=== PATIENT | male | born 1955 | race Caucasian/White ===

== ENCOUNTER 2017-09-30 02:25 | Emergency (ER) | payer BC ==
--- NOTE | 2017-09-30 02:25 | EDM.PDOC ---
ED HPI GENERAL MEDICAL PROBLEM - General Chief Complaint: Respiratory Problem Stated Complaint: SOB AMBULANCE Time Seen by Provider: 09/30/17 02:20 Source of Information: Reports: Patient, EMS History Limitations: Reports: No Limitations - History of Present Illness INITIAL COMMENTS - FREE TEXT/NARRATIVE: EMS states arrived pt panting at scene O2 60%, NR mask placed O2 2 90%. pt states usually uses O2 @ 8 LMP cannula and CPAP for sleep apnoea. got up to bathroom and back and got SOB unable to breath called EMS. - Related Data Allergies Allergy/AdvReac Type Severity Reaction Status Date / Time No Known Allergies Allergy Verified 09/30/17 03:23 Home Meds: Home Meds Folic Acid 0.8 mg PO ASDIRECTED 11/07/13 [History] Methotrexate Sodium [Methotrexate] 15 mg PO ASDIRECTED 08/16/14 [History] Naproxen 500 mg PO BIDM 08/16/14 [History] Albuterol/Ipratropium [Combivent Respimat] 1 puff INH QID PRN 09/09/15 [History] Valsartan/Hydrochlorothiazide [Valsartan-Hctz 160-12.5 mg Tab] 1 tab PO DAILY [History] Acetaminophen [Tylenol] 650 mg PO Q4H PRN #0 tablet 09/10/15 [Rx] Albuterol/Ipratropium [DuoNeb 3.0-0.5 MG/3 ML] 3 ml NEB Q6HRRT neb 09/10/15 [Rx ] Enoxaparin [Lovenox] 40 mg SUBCUT DAILY syringe 09/10/15 [Rx] Levofloxacin/Dextrose 5%-Water [Levaquin in D5W 750 MG/150 ML] 750 mg IV Q24H bag 09/10/15 [Rx] Ranitidine [Zantac] 150 mg PO BID 09/30/17 [History] Turmeric [Curcumin] 1,500 mg PO DAILY 09/30/17 [History] Past Medical History Other Gastrointestinal History: colon polyps Social & Family History - Tobacco Use Smoking Status *Q: Former Smoker Years of Tobacco use: 30 Packs/Tins Daily: 1 (1 to 2) Used Tobacco, but Quit: No Month Tobacco Last Used: 2014 Second Hand Smoke Exposure: Yes - Alcohol Use Days Per Week of Alcohol Use: 0 - Recreational Drug Use Recreational Drug Use: No - Living Situation & Occupation Living situation: Reports: , with Family Occupation: Employed ED ROS GENERAL - Review of Systems Review Of Systems: ROS reveals no pertinent complaints other than HPI. ED EXAM, GENERAL - Physical Exam Exam: See Below Exam Limited By: No Limitations General Appearance: Alert, WD/WN, Mild Distress, Moderate Distress, Other (sob) Ears: Hearing Grossly Normal Throat/Mouth: Normal Voice, No Airway Compromise Head: Atraumatic Neck: Non-Tender, Full Range of Motion Respiratory/Chest: Decreased Breath Sounds, Rhonchi, Wheezing, Retractions Cardiovascular: Regular Rate, Rhythm GI/Abdominal: Soft, Non-Tender Neurological: Alert, Oriented, Normal Cognition, No Motor/Sensory Deficits Psychiatric: Anxious Skin Exam: Warm, Dry, Normal Color Lymphatic: No Adenopathy Course - Vital Signs Last Recorded V/S: Last Vital Signs Temp 37.8 C 09/30/17 05:19 Pulse 117 H 09/30/17 05:19 Resp 24 H 09/30/17 05:19 BP 116/71 09/30/17 05:19 Pulse Ox 91 L 09/30/17 05:19 - Orders/Labs/Meds Orders: Active Orders 24 hr Category Date Time Status EKG 12 Lead [EKG Documentation Completion] [RC] STAT Care 09/30/17 06:04 Ordered Chest w Cont [CT] Urgent Exams 09/30/17 03:22 Taken CULTURE BLOOD [BC] Stat Lab 09/30/17 02:25 Received Azithromycin [Zithromax] 500 mg Med 09/30/17 06:03 Ordered Sodium Chloride 0.9% [Normal Saline] 250 ml IV ONETIME cefTRIAXone [Rocephin] 1 gm Med 09/30/17 06:02 Ordered Sodium Chloride 0.9% [Normal Saline] 50 ml IV ONETIME Medication Orders Ceftriaxone Sodium 1 gm/ (Sodium Chloride) 50 mls @ 100 mls/hr IV ONETIME ONE Stop: 09/30/17 06:31 Azithromycin 500 mg/ Sodium (Chloride) 250 mls @ 250 mls/hr IV ONETIME ONE Stop: 09/30/17 07:02 Labs: Laboratory Tests 09/30/17 09/30/17 09/30/17 Range/Units 02:25 02:25 02:25 WBC 11.2 H (5.0-10.0) 10^3/uL RBC 4.32 L (4.6-6.2) 10^6/uL Hgb 13.1 L D (14.0-18.0) g/dL Hct 39.7 L (40.0-54.0) % MCV 91.9 (80-100) fL MCH 30.3 (27.0-34.0) pg MCHC 33.0 (33.0-35.0) g/dL Plt Count 188 (150-450) 10^3/uL Neut % (Auto) 73.1 (42.2-75.2) % Lymph % (Auto) 18.8 L (20.5-50.1) % Dodge % (Auto) 6.4 (2-8) % Eos % (Auto) 1.4 (1.0-3.0) % Baso % (Auto) 0.3 (0.0-1.0) % D-Dimer, Quantitative 1240 H (0-400) ng/mL Sodium 139 (135-145) mmol/L Potassium 3.8 (3.6-5.0) mmol/L Chloride 100 L (101-111) mmol/L Carbon Dioxide 26.0 (21.0-31.0) mmol/L Anion Gap 16.8 BUN 13 (7-18) mg/dL Creatinine 0.9 (0.6-1.3) mg/dL Est Cr Clr Drug Dosing 90.12 mL/min Estimated GFR (MDRD) > 60 BUN/Creatinine Ratio 14.44 Glucose 115 H (74-105) mg/dL Lactic Acid (0.5-2.2) mmol/L Calcium 9.1 (8.4-10.2) mg/dl Total Bilirubin 0.4 (0.2-1.0) mg/dL AST 32 (10-42) IU/L ALT 28 (10-60) IU/L Alkaline Phosphatase 60 (42-121) IU/L Troponin I 0.02 (0.00-0.02) ng/ml B-Natriuretic Peptide 28 (0-100) pg/ml Total Protein 7.7 (6.7-8.2) g/dl Albumin 3.9 (3.2-5.5) g/dl Globulin 3.8 Albumin/Globulin Ratio 1.03 09/30/17 Range/Units 02:25 WBC (5.0-10.0) 10^3/uL RBC (4.6-6.2) 10^6/uL Hgb (14.0-18.0) g/dL Hct (40.0-54.0) % MCV (80-100) fL MCH (27.0-34.0) pg MCHC (33.0-35.0) g/dL Plt Count (150-450) 10^3/uL Neut % (Auto) (42.2-75.2) % Lymph % (Auto) (20.5-50.1) % Dodge % (Auto) (2-8) % Eos % (Auto) (1.0-3.0) % Baso % (Auto) (0.0-1.0) % D-Dimer, Quantitative (0-400) ng/mL Sodium (135-145) mmol/L Potassium (3.6-5.0) mmol/L Chloride (101-111) mmol/L Carbon Dioxide (21.0-31.0) mmol/L Anion Gap BUN (7-18) mg/dL Creatinine (0.6-1.3) mg/dL Est Cr Clr Drug Dosing mL/min Estimated GFR (MDRD) BUN/Creatinine Ratio Glucose (74-105) mg/dL Lactic Acid 3.5 H (0.5-2.2) mmol/L Calcium (8.4-10.2) mg/dl Total Bilirubin (0.2-1.0) mg/dL AST (10-42) IU/L ALT (10-60) IU/L Alkaline Phosphatase (42-121) IU/L Troponin I (0.00-0.02) ng/ml B-Natriuretic Peptide (0-100) pg/ml Total Protein (6.7-8.2) g/dl Albumin (3.2-5.5) g/dl Globulin Albumin/Globulin Ratio Meds: Medications Generic Name Dose Route Start Last Admin Trade Name Freq PRN Reason Stop Dose Admin Ceftriaxone Sodium 1 gm/ 50 mls @ 100 mls/hr 09/30/17 06:02 Sodium Chloride IV 09/30/17 06:31 ONETIME ONE Azithromycin 500 mg/ Sodium 250 mls @ 250 mls/hr 09/30/17 06:03 Chloride IV 09/30/17 07:02 ONETIME ONE Discontinued Medications Generic Name Dose Route Start Last Admin Trade Name Ana PRN Reason Stop Dose Admin Iopamidol 100 ml 09/30/17 03:21 09/30/17 03:58 Isovue-370 (76%) IVPUSH 09/30/17 03:22 84 ml ONETIME ONE Administration - Re-Assessments/Exams Free Text/Narrative Re-Assessment/Exam: 09/30/17 05:50 results discussed with pt & family. data collection interviewer hospitalist Dr Reyna @ will accept pt. Departure - Departure Time of Disposition: 06:05 Disposition: DC/Tfer to [facility] 02 Condition: Fair Clinical Impression: Pulmonary fibrosis Pneumonia Qualifiers: Pneumonia type: due to unspecified organism Laterality: bilateral Lung location : upper lobe of lung Qualified Code(s): J18.9 - Pneumonia, unspecified organism - Discharge Information Forms: Interfacility Transfer EMTALA - My Orders Last 24 Hours: My Active Orders 09/30/17 02:25 CULTURE BLOOD [BC] Stat 09/30/17 03:22 Chest w Cont [CT] Urgent 09/30/17 06:02 cefTRIAXone [Rocephin] 1 gm Sodium Chloride 0.9% [Normal Saline] 50 ml IV ONETIME 09/30/17 06:03 Azithromycin [Zithromax] 500 mg Sodium Chloride 0.9% [Normal Saline] 250 ml IV ONETIME 09/30/17 06:04 EKG 12 Lead [EKG Documentation Completion] [RC] STAT - Assessment/Plan Last 24 Hours: My Active Orders 09/30/17 02:25 CULTURE BLOOD [BC] Stat 09/30/17 03:22 Chest w Cont [CT] Urgent 09/30/17 06:02 cefTRIAXone [Rocephin] 1 gm Sodium Chloride 0.9% [Normal Saline] 50 ml IV ONETIME 09/30/17 06:03 Azithromycin [Zithromax] 500 mg Sodium Chloride 0.9% [Normal Saline] 250 ml IV ONETIME 09/30/17 06:04 EKG 12 Lead [EKG Documentation Completion] [RC] STAT
[2017-09-30 02:55] LABS: CHLORIDE,CL 100 mmol/L (101-111); SODIUM,NA 139 mmol/L (135-145)
[2017-09-30] MEDS ORDERED: Iopamidol 755 Mg/ML 100 ML Bottle IVPUSH ONE (03:21)
[2017-09-30 05:20] VITALS: BP 116/71
[2017-09-30] MEDS ORDERED: cefTRIAXone 1 GM in Sodium Chloride 0.9% 50 ML IV ONE (06:02)
[2017-09-30] MEDS ORDERED: Azithromycin 500 MG in Sodium Chloride 0.9% 250 ML IV ONE (06:03)
--- NOTE | 2017-10-01 08:57 | EKG ---
09/30/2017 - LISSETTE GALLO - FINDINGS: This 12-lead EKG shows a sinus tachycardia with ventricular rate of 118. Normal axis and intervals. No acute ST-segment or T-wave changes. [facility] /[id number]
== END 2017-09-30 06:39 ==
LOC: DL.ED 02:25
DX: J84.10 Pulmonary fibrosis, unspecified (principal); J18.9 Pneumonia, unspecified organism; Z87.891 Personal history of nicotine dependence; Z79.899 Other long term (current) drug therapy
CPT/HCPCS: 36415; 71260; 80053; 83605; 83880; 84484; 85025; 85379; 87040; 93005; 96365; 96375; 99285; J0456; J0696; J7050; Q9967